=== PATIENT | male | born 1955 | race Caucasian/White ===

== ENCOUNTER 2020-04-13 18:13 | Outpatient (REF) | payer OTHER, BC, SELFPAY ==
[2020-04-13 21:30] LABS: Anion Gap 9.4 mmol/L (3-11); BUN 18 mg/dL (7-18); CO2 26.6 mmol/L (21.0-32.0); CREATININE 0.86 mg/dL (0.70-1.30); Calcium 8.8 mg/dL (8.5-10.1); Calculated LDL 67 mg/dL (<100); Chloride 102 mmol/L (98-107); Cholesterol 122 mg/dL (<200); Glucose 86 mg/dL (74-106); HDL Cholesterol 42 mg/dL (40-60); Potassium 4.1 mmol/L (3.5-5.1); Sodium 138 mmol/L (136-145); Triglyceride 67 mg/dL (<150)
[2020-04-15 10:51] LABS: Hepatitis C Ab w Rflx HCV PCR Negative (Negative)
== END 2020-04-13 18:33 ==
LOC: NCHCN 18:13
PROVIDERS: PCP Internal Medicine; Visit Provider Internal Medicine
DX: I10 Essential (primary) hypertension (principal); E78.5 Hyperlipidemia, unspecified; M17.9 Osteoarthritis of knee, unspecified; E66.9 Obesity, unspecified; Z11.59 Encounter for screening for other viral diseases
CPT/HCPCS: 80048; 80061; 86803

== ENCOUNTER 2021-06-18 19:06 | Outpatient (REF) | payer BC, SELFPAY ==
[2021-06-18 14:42] LABS: Abs Immature Grans 0.07 10^3/uL (0.0-0.06); Absolute Basophil Count 0.03 10^3/uL (0.0-0.2); Absolute Eosinophil Count 0.14 10^3/uL (0.0-0.7); Absolute Lymphocyte Count 2.66 10^3/uL (1.2-3.4); Basophils % 0.3; Eosinophils % 1.2; HCT 46.9 % (40.0-50.0); HGB 15.6 g/dL (13.5-17.5); Immature Grans % 0.6; Lymphocytes % 23.3; MCH 29.5 pg (27.0-33.0); MCHC 33.3 % (32.0-36.0); MCV 88.8 fL (80-95); MPV 10.8 fL (8.0-11.0); Monocytes % 12.3; Neutrophils % 62.3; Nucleated RBC 0 %; Platelet Count 142 10^3/uL (130-400); RBC 5.28 10^6/uL (4.36-5.78); RDW 12.2 % (11.8-14.1); RDW-SD 40.3 fL; WBC 11.42 10^3/uL (4.4-10.8)
[2021-06-18 14:43] LABS: Absolute Neutrophil Count 7.11 10^3/uL (1.2-6.7)
[2021-06-18 15:19] LABS: ALT 32 U/L (16-63); AST 19 U/L (15-37); Alkaline Phosphatase 47 U/L (46-116); Anion Gap 9.7 mmol/L (3-11); BUN 18 mg/dL (7-18); Bilirubin, Total 0.8 mg/dL (0.2-1.0); CO2 25.3 mmol/L (21.0-32.0); CREATININE 0.7 mg/dL (0.70-1.30); Calcium 9.2 mg/dL (8.5-10.1); Chloride 104 mmol/L (98-107); Glucose 114 mg/dL (74-106); Potassium 4.5 mmol/L (3.5-5.1); Sodium 139 mmol/L (136-145); Total Protein 7.6 g/dL (6.4-8.2)
== END 2021-06-18 19:07 | disposition home or self-care (01) ==
LOC: LBN 19:06
PROVIDERS: PCP Internal Medicine; Visit Provider Physician Assistant Medical
DX: M79.89 Other specified soft tissue disorders (principal)
CPT/HCPCS: 80053; 85025

== ENCOUNTER 2021-08-17 00:24 | Outpatient (CLI) | payer MEDICARE, SELFPAY ==
--- NOTE | 2021-08-17 | DI.US_ITS ---
Exam(s) US LOWER EXTREMITY VENOUS RT EXAM: US LOWER EXTREMITY VENOUS RT CLINICAL HISTORY: ACUTE DVT,I82.401 TECHNIQUE: Right lower extremity venous ultrasound performed using grayscale, color-flow, and spectr al Doppler analysis. COMPARISON: US US LOWER EXTREMITY VENOUS RT from 06/18/2021 FINDINGS: The right common demonstrate normal compressibility, augmentation, and color Doppler. There is again seen a hypoechoic thrombus extending from the proximal femoral vein through the popliteal vein and in volving the peroneal veins. It measures approximately 50 cm in length. The posterior tibial veins a re now patent. The saphenofemoral junction is unremarkable. There is no evidence of a Humphreys cyst. The soft tissues are unremarkable. IMPRESSION: 1. Extensive right lower extremity DVT again extending from the femoral vein proximally into the shawanda carri veins. 2. The thrombus seen in the posterior tibialis veins has resolved since the prior examination. DATA REPOSITORY:
== END 2021-08-17 00:44 ==
PROVIDERS: PCP Family Medicine; Visit Provider Family Medicine
DX: I82.491 Acute embolism and thrombosis of other specified deep vein of right lower extremity (principal)
CPT/HCPCS: 93971

== ENCOUNTER 2022-02-09 10:25 | Outpatient (REF) | payer MEDICARE, SELFPAY ==
[2022-02-09 15:13] LABS: HCT 46.7 % (40.0-50.0); HGB 15.6 g/dL (13.5-17.5); MCH 29.2 pg (27.0-33.0); MCHC 33.4 % (32.0-36.0); MCV 87.3 fL (80-95); MPV 11.4 fL (8.0-11.0); Platelet Count 211 10^3/uL (130-400); RBC 5.35 10^6/uL (4.36-5.78); RDW 12.8 % (11.8-14.1); RDW-SD 40.8 fL; WBC 7.57 10^3/uL (4.4-10.8)
[2022-02-09 17:12] LABS: Anion Gap 9.9 mmol/L (3-11); BUN 20 mg/dL (7-18); CO2 25.1 mmol/L (21.0-32.0); CREATININE 0.7 mg/dL (0.70-1.30); Calcium 9.1 mg/dL (8.5-10.1); Chloride 103 mmol/L (98-107); Glucose 114 mg/dL (74-106); Potassium 4.6 mmol/L (3.5-5.1); Sodium 138 mmol/L (136-145)
== END 2022-02-09 10:26 | disposition home or self-care (01) ==
LOC: NCHCN 10:25
PROVIDERS: PCP Family Medicine; Visit Provider Family Medicine
DX: I82.401 Acute embolism and thrombosis of unspecified deep veins of right lower extremity (principal)
CPT/HCPCS: 80048; 85027

== ENCOUNTER 2022-02-09 17:50 | Outpatient (REF) | payer MEDICARE, SELFPAY | END 2022-02-09 17:51 | disposition home or self-care (01) | LOC: NCHCN 17:50 | PROVIDERS: PCP Family Medicine; Visit Provider Family Medicine ==

== ENCOUNTER 2022-02-18 03:38 | Outpatient (CLI) | payer MEDICARE, SELFPAY ==
[2022-02-19 16:24] LABS: Protein S Ag, Free 121 % (65 - 160)
[2022-02-21 09:40] LABS: Antithrombin 3, Funct. 86 % (85-125)
[2022-02-21 22:50] LABS: Phospholipid Ab, IgG <9.4 GPL; Phospholipid Ab, IgM <9.4 MPL
[2022-02-22 09:52] LABS: Factor V Leiden(R506Q) Mut Negative (Negative)
[2022-02-25 15:44] LABS: Protein C Ag, P 73 %
== END 2022-02-18 03:39 | disposition home or self-care (01) ==
PROVIDERS: PCP Family Medicine; Visit Provider Family Medicine
DX: I82.401 Acute embolism and thrombosis of unspecified deep veins of right lower extremity (principal)
CPT/HCPCS: 36415; 81241; 85300; 85305; 86147

== ENCOUNTER 2022-08-27 00:02 | Outpatient (RCR) | payer MEDICARE, SELFPAY ==
[2022-08-13] MEDS: Normal Saline Flush 10 ML SYR IVP (12:57)
[2022-08-13] MEDS: ERTAPENEM 1 GM in Normal Saline 50 ML IVPB (13:11)
[2022-08-14] MEDS: Normal Saline Flush 10 ML SYR IVP (12:59)
[2022-08-14] MEDS: ERTAPENEM 1 GM in Normal Saline 50 ML IVPB (13:04)
[2022-08-15] MEDS: Normal Saline Flush 10 ML SYR IVP (13:03)
[2022-08-15] MEDS: ERTAPENEM 1 GM in Normal Saline 50 ML IVPB (13:03)
[2022-08-16] MEDS: ERTAPENEM 1 GM in Normal Saline 50 ML IVPB (12:52)
[2022-08-16] MEDS: Normal Saline Flush 10 ML SYR IVP (12:54)
[2022-08-17] MEDS: Normal Saline Flush 10 ML SYR IVP (12:52)
[2022-08-17] MEDS: ERTAPENEM 1 GM in Normal Saline 50 ML IVPB (12:52)
[2022-08-18] MEDS: ERTAPENEM 1 GM in Normal Saline 50 ML IVPB (12:40)
[2022-08-18] MEDS: Normal Saline Flush 10 ML SYR IVP (12:41)
[2022-08-19] MEDS: Normal Saline Flush 10 ML SYR IVP (12:39)
[2022-08-19] MEDS: ERTAPENEM 1 GM in Normal Saline 50 ML IVPB (12:39)
[2022-08-19 12:48] LABS: Abs Immature Grans 0.08 10^3/uL (0.0-0.06); Absolute Basophil Count 0.02 10^3/uL (0.0-0.2); Absolute Eosinophil Count 0.12 10^3/uL (0.0-0.7); Absolute Lymphocyte Count 2.21 10^3/uL (1.2-3.4); Absolute Neutrophil Count 6.69 10^3/uL (1.2-6.7); Basophils % 0.2; Eosinophils % 1.2; HCT 34.3 % (40.0-50.0); HGB 10.7 g/dL (13.5-17.5); Immature Grans % 0.8; Lymphocytes % 22.1; MCH 27.4 pg (27.0-33.0); MCHC 31.2 % (32.0-36.0); MCV 88 fL (80-95); MPV 9.4 fL (8.0-11.0); Neutrophils % 66.7; Platelet Count 365 10^3/uL (130-400); RDW 13.9 % (11.8-14.1); RDW-SD 44.4 fL; WBC 10.02 10^3/uL (4.4-10.8)
[2022-08-19 12:59] LABS: C-Reactive Protein 0.98 mg/dL (0.0-0.3); CREATININE 0.9 mg/dL (0.70-1.30); Estimated GFR 94.19 (mL/min/1.73m2)
[2022-08-20] MEDS: ERTAPENEM 1 GM in Normal Saline 50 ML IVPB (12:50)
[2022-08-20] MEDS: Normal Saline Flush 10 ML SYR IVP (12:50)
[2022-08-21] MEDS: ERTAPENEM 1 GM in Normal Saline 50 ML IVPB (12:52)
[2022-08-21] MEDS: Normal Saline Flush 10 ML SYR IVP (12:52)
[2022-08-22] MEDS: Normal Saline Flush 10 ML SYR IVP (12:46)
[2022-08-22] MEDS: ERTAPENEM 1 GM in Normal Saline 50 ML IVPB (12:47)
[2022-08-23] MEDS: ERTAPENEM 1 GM in Normal Saline 50 ML IVPB (12:32)
[2022-08-23] MEDS: Normal Saline Flush 10 ML SYR IVP (12:33)
[2022-08-24] MEDS: Normal Saline Flush 10 ML SYR IVP (12:47)
[2022-08-24] MEDS: ERTAPENEM 1 GM in Normal Saline 50 ML IVPB (12:47)
[2022-08-25] MEDS: Normal Saline Flush 10 ML SYR IVP (12:49)
[2022-08-25] MEDS: ERTAPENEM 1 GM in Normal Saline 50 ML IVPB (12:49)
[2022-08-26] MEDS: ERTAPENEM 1 GM in Normal Saline 50 ML IVPB (12:50)
[2022-08-26] MEDS: Normal Saline Flush 10 ML SYR IVP (12:51)
[2022-08-26 13:09] LABS: Abs Immature Grans 0.04 10^3/uL (0.0-0.06); Absolute Basophil Count 0.03 10^3/uL (0.0-0.2); Absolute Eosinophil Count 0.09 10^3/uL (0.0-0.7); Absolute Lymphocyte Count 2.01 10^3/uL (1.2-3.4); Absolute Monocyte Count 0.98 10^3/uL (0.1-0.8); Absolute Neutrophil Count 6.53 10^3/uL (1.2-6.7); Basophils % 0.3; Eosinophils % 0.9; HCT 36.3 % (40.0-50.0); HGB 11.2 g/dL (13.5-17.5); Immature Grans % 0.4; Lymphocytes % 20.8; MCH 26.6 pg (27.0-33.0); MCHC 30.9 % (32.0-36.0); MCV 86 fL (80-95); MPV 9.8 fL (8.0-11.0); Monocytes % 10.1; Neutrophils % 67.5; Platelet Count 328 10^3/uL (130-400); RBC 4.21 10^6/uL (4.36-5.78); RDW 14.1 % (11.8-14.1); RDW-SD 44.4 fL; WBC 9.68 10^3/uL (4.4-10.8)
[2022-08-26 13:20] LABS: CREATININE 0.8 mg/dL (0.70-1.30); Estimated GFR 97.61 (mL/min/1.73m2)
== END 2022-08-27 23:59 | disposition home or self-care (01) ==
LOC: INF 00:02
PROVIDERS: Internal Medicine; PCP Family Medicine; Visit Provider Internal Medicine
DX: Z96.659 Presence of unspecified artificial knee joint (principal); T84.59XA Infection and inflammatory reaction due to other internal joint prosthesis, initial encounter; Z45.2 Encounter for adjustment and management of vascular access device
CPT/HCPCS: 36592; 96365; 82565; 85025; 86140; J1335

== ENCOUNTER 2022-09-08 13:30 | Outpatient (RCR) | payer MEDICARE, SELFPAY ==
[2022-08-27] MEDS: ERTAPENEM 1 GM in Normal Saline 50 ML IVPB (12:34)
[2022-08-28] MEDS: ERTAPENEM 1 GM in Normal Saline 50 ML IVPB (13:05)
[2022-08-29] MEDS: ERTAPENEM 1 GM in Normal Saline 50 ML IVPB (12:53)
[2022-08-29] MEDS: Normal Saline Flush 10 ML SYR IVP (13:10)
[2022-08-30] MEDS: ERTAPENEM 1 GM in Normal Saline 50 ML IVPB (12:50)
[2022-08-30] MEDS: Normal Saline Flush 10 ML SYR IVP (12:50)
[2022-08-31] MEDS: Normal Saline Flush 10 ML SYR IVP (12:34)
[2022-08-31] MEDS: ERTAPENEM 1 GM in Normal Saline 50 ML IVPB (12:35)
[2022-09-01] MEDS: ERTAPENEM 1 GM in Normal Saline 50 ML IVPB (12:45)
[2022-09-01] MEDS: Normal Saline Flush 10 ML SYR IVP (12:46)
[2022-09-02] MEDS: ERTAPENEM 1 GM in Normal Saline 50 ML IVPB (12:38)
[2022-09-02] MEDS: Normal Saline Flush 10 ML SYR IVP (12:39)
[2022-09-02 13:01] LABS: Abs Immature Grans 0.02 10^3/uL (0.0-0.06); Absolute Basophil Count 0.03 10^3/uL (0.0-0.2); Absolute Eosinophil Count 0.11 10^3/uL (0.0-0.7); Absolute Lymphocyte Count 2.16 10^3/uL (1.2-3.4); Absolute Monocyte Count 0.71 10^3/uL (0.1-0.8); Absolute Neutrophil Count 4.14 10^3/uL (1.2-6.7); Basophils % 0.4; Eosinophils % 1.5; HCT 38.7 % (40.0-50.0); HGB 12.3 g/dL (13.5-17.5); Immature Grans % 0.3; Lymphocytes % 30.1; MCH 26.6 pg (27.0-33.0); MCHC 31.8 % (32.0-36.0); MCV 84 fL (80-95); Monocytes % 9.9; Neutrophils % 57.8; Platelet Count 269 10^3/uL (130-400); RBC 4.62 10^6/uL (4.36-5.78); RDW 13.9 % (11.8-14.1); RDW-SD 42.6 fL; WBC 7.17 10^3/uL (4.4-10.8)
[2022-09-02 13:20] LABS: C-Reactive Protein 0.59 mg/dL (0.0-0.3); CREATININE 0.8 mg/dL (0.70-1.30); Estimated GFR 97.61 (mL/min/1.73m2)
[2022-09-03] MEDS: ERTAPENEM 1 GM in Normal Saline 50 ML IVPB (12:25)
[2022-09-03] MEDS: Normal Saline Flush 10 ML SYR IVP (12:52)
[2022-09-04] MEDS: Normal Saline Flush 10 ML SYR IVP (12:22)
[2022-09-04] MEDS: ERTAPENEM 1 GM in Normal Saline 50 ML IVPB (12:24)
[2022-09-05] MEDS: ERTAPENEM 1 GM in Normal Saline 50 ML IVPB (12:34)
[2022-09-05] MEDS: Normal Saline Flush 10 ML SYR IVP (12:35)
[2022-09-06] MEDS: ERTAPENEM 1 GM in Normal Saline 50 ML IVPB (12:28)
[2022-09-06] MEDS: Normal Saline Flush 10 ML SYR IVP (12:30)
[2022-09-07] MEDS: ERTAPENEM 1 GM in Normal Saline 50 ML IVPB (12:46)
[2022-09-08] MEDS: ERTAPENEM 1 GM in Normal Saline 50 ML IVPB (12:35)
[2022-09-08] MEDS: Normal Saline Flush 10 ML SYR IVP (12:36)
[2022-09-08] MEDS: Bacitracin 1 PACKET (13:18)
== END 2022-09-26 23:59 | disposition home or self-care (01) ==
LOC: INF 13:30
PROVIDERS: Internal Medicine; PCP Family Medicine; Visit Provider Internal Medicine
DX: T84.59XA Infection and inflammatory reaction due to other internal joint prosthesis, initial encounter (principal); Z96.659 Presence of unspecified artificial knee joint
CPT/HCPCS: 36592; 96365; 96413; 82565; 85025; 86140; J1335

== ENCOUNTER → 2023-11-16 12:35 | Outpatient (CLI) | payer MEDICARE, SELFPAY ==
--- NOTE | 2023-11-16 | DI.US_ITS ---
Exam(s) US EXTREMITY VENOUS BI EXAM: US EXTREMITY VENOUS BI CLINICAL HISTORY: H/O DVT,BILAT LOWER EXT PAIN,? DVT. TECHNIQUE: Bilateral lower extremity venous ultrasound performed using grayscale, color-flow, and sp ectral Doppler analysis. COMPARISON: No exams were available for comparison FINDINGS: The right common femoral, femoral and popliteal veins demonstrate normal compressibility, augmentatio n, and color Doppler. The posterior tibial and peroneal veins are patent. The saphenofemoral junctio n is unremarkable. There is no evidence of a Humphreys's cyst. The soft tissues are unremarkable. The left common femoral, femoral and popliteal veins demonstrate normal compressibility, augmentation , and color Doppler. The posterior tibial and peroneal veins are patent. The saphenofemoral junction is unremarkable. There is no evidence of a Humphreys's cyst. The soft tissues are unremarkable. IMPRESSION: 1. No evidence of a right lower extremity DVT. 2. No evidence of a left lower extremity DVT. DATA REPOSITORY:
--- OUTSIDE RECORDS SUMMARY | 2023-11-16 12:37 | XMS_ITS | CCD ---
Author Name Unknown Address [address] [place] [address] [id number] Organization Unknown Address [address] [place] [address] [phone] Care Team Providers Care Relay Assembler Name Role Phone ASTER RICHARDS Attending Physician [phone] ASTER RICHARDS Rounding (Secondary) Physician [phone] Vital Signs Unknown or Not Available. Allergies Allergy Code Allergy Type Reaction Status No Known Allergies 0 No known allergies Active Procedures Unknown or Not Available. History of Immunizations Unknown or Not Available. Problems Unknown or Not Available. Results Unknown or Not Available. Active Medications Unknown or Not Available. Medications Administered During Visit Unknown or Not Available. Encounters Encounter Diagnosis Diagnosis Code Start Date Ankylosis, left knee [id number] 10/17/2022 Social History Smoking Status Code Start Date End Date Former smoker [id number] 01/28/2000 Patient Decision Aids Unknown or Not Available. Discharge Instructions You were admitted to [facility] on 10/17/2022 14:35 with a principal diagnosis of Ankylosis, left knee You were discharged from [facility] on 10/17/2022 00:00 Should you have any questions prior to discharge, please contact a member of your healthcare team. If you have left the hospital and have any questions, please contact your primary care physician. Chief Complaint and Reason For Visit Unknown or Not Available. Function Status Unknown or Not Available. Plan of Care Unknown or Not Available. Referral/Transition of Care Unknown or Not Available.
--- OUTSIDE RECORDS SUMMARY | 2023-11-16 12:37 | XMS_ITS | CCD ---
Author Name Unknown Address [address] [place] [address] [phone] Organization Unknown Address [address] [place] [address] [phone] Care Team Providers Care Dressmaker Helper Name Role Phone GIGI ALVAREZ Attending Physician [phone] Vital Signs Unknown or Not Available. Allergies Allergy Code Allergy Type Reaction Status No Known Allergies 0 No known allergies Active Procedures Unknown or Not Available. History of Immunizations Unknown or Not Available. Problems Unknown or Not Available. Results [facility] ALYSA SWANSONONIX* - Danny ect Date/Time: 10/01/2022 10:22 Test Name Code Test Result Test Units Test Ref Rang e Tier- 72248-5 PRE-OP N/A SARS COV2 RNA: 07921-9 NEGATIVE N/A REFERENCE RANGE: NEGAT Active Medications Unknown or Not Available. Medications Administered During Visit Unknown or Not Available. Encounters Encounter Diagnosis Diagnosis Code Start Date Pre-surgery testing [id number] 10/01/2022 Social History Smoking Status Code Start Date End Date Former smoker [id number] 01/28/2000 Patient Decision Aids Unknown or Not Available. Discharge Instructions You were admitted to [facility] on 10/01/2022 21:54 with a principal diagnosis of Encounter for preprocedural laboratory examination You had the following tests done:TOBIAS COVID RHEONIX* You were discharged from [facility] on 10/01/2022 21:54 Should you have any questions prior to discharge, please contact a member of your healthcare team. If you have left the hospital and have any questions, please contact your primary care physician. Chief Complaint and Reason For Visit Chief Complaint Date of Onset PRE OP TESTING Function Status Unknown or Not Available. Plan of Care Unknown or Not Available. Referral/Transition of Care Unknown or Not Available.
--- OUTSIDE RECORDS SUMMARY | 2023-11-16 12:37 | XMS_ITS | CCD ---
Author Name Unknown Address [address] [place] [address] [id number] Organization Unknown Address [address] [place] [address] [phone] Care Team Providers Care Tree Warden Name Role Phone GIGI ALVAREZ Attending Physician [phone] GIGI ALVAREZ Rounding (Secondary) Physician [phone] Vital Signs Unknown or Not Available. Allergies [...] Encounters Encounter Diagnosis Diagnosis Code Start Date Artificial knee joint present [id number] Social History Smoking Status Code Start Date End Date Former smoker [id number] 01/28/2000 Patient Decision Aids Unknown or Not Available. Discharge Instructions You were admitted to [facility] on 11/17/2022 07:26 with a principal diagnosis of Presence of left artificial knee joint You were discharged from [facility] on 11/17/2022 00:00 Should you have any questions prior [...]
--- OUTSIDE RECORDS SUMMARY | 2023-11-16 12:37 | XMS_ITS | CCD ---
Author Name Unknown Address [address] [place] [address] [id number] Organization Unknown Address [address] [place] [address] [phone] Care Team Providers Care Tray Checker Name Role Phone DORA MCDONOUGH Attending Physician [phone] Vital Signs Unknown or Not Available. Allergies Unknown or Not Available. Procedures Unknown or Not Available. History of Immunizations Unknown or Not Available. Problems Unknown or Not Available. Results Unknown or Not Available. Active Medications Unknown or Not Available. Medications Administered During Visit Unknown or Not Available. 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 Discharge Instructions You were admitted to [facility] on 08/03/2022 03:00 with a principal diagnosis of Infection and inflammatory reaction due to internal left knee prosthesis, initial encounter You were discharged from [facility] on 08/09/2022 03:00 Should you have any questions prior to [...]
--- OUTSIDE RECORDS SUMMARY | 2023-11-16 12:38 | XMS_ITS | CCD ---
Author Name Unknown Address [address] [place] [address] [id number] Organization Unknown Address [address] [place] [address] [phone] Care Team Providers Care Supervisor Fur Dressing Name Role Phone GIGI ALVAREZ Attending Physician [phone] Vital Signs Unknown or Not Available. Allergies Unknown or Not Available. Procedures Unknown or Not Available. History of Immunizations Unknown or Not Available. Problems Unknown or Not Available. Results [facility] SARAHID KIKIONIX* - Danny ect Date/Time: 07/08/2022 10:34 Test Name Code Test Result Test Units Test Ref Rang e Tier- 60729-9 PRE-OP N/A SARS COV2 RNA: 28778-1 NEGATIVE N/A REFERENCE RANGE: NEGAT Active Medications Unknown or Not Available. Medications Administered During Visit Unknown or Not Available. Encounters Encounter Diagnosis Diagnosis Code Start Date Pre-surgery testing [id number] 07/08/2022 Social History Smoking Status Code Start Date End Date Former smoker [id number] 01/28/2000 Patient Decision Aids Unknown or Not Available. Discharge Instructions You were admitted to [facility] on 07/08/2022 21:48 with a principal diagnosis of Encounter for preprocedural laboratory examination You had the following tests done:TOBIAS COVID RHEONIX* You were discharged from [facility] on 07/08/2022 21:48 Should you have any questions prior to [...]
--- OUTSIDE RECORDS SUMMARY | 2023-11-16 12:38 | XMS_ITS | CCD ---
Author Name Unknown Address [address] [place] [address] [id number] Organization Unknown Address [address] [place] [address] [phone] Care Team Providers Care Assistant Auditor Name Role Phone GIGI ALVAREZ Attending Physician [phone] GIGI ALVAREZ Rounding (Secondary) Physician [phone] Vital Signs Unknown or Not Available. Allergies Unknown or Not Available. Procedures Unknown or Not Available. History of Immunizations Unknown or Not Available. Problems Unknown or Not Available. Results Unknown or Not Available. Active Medications Medications Administered During Visit Unknown or Not Available. Encounters Encounter Diagnosis Diagnosis Code Start Date Artificial knee joint present [id number] Social History Smoking Status Code Start Date End Date Former smoker [id number] 01/28/2000 Patient Decision Aids Unknown or Not Available. Discharge Instructions You were admitted to [facility] on 08/12/2022 07:52 with a principal diagnosis of Presence of left artificial knee joint You were discharged from [facility] on 08/12/2022 00:00 Should you have any questions prior [...]
--- OUTSIDE RECORDS SUMMARY | 2023-11-16 12:39 | XMS_ITS | CCD ---
Author Name Unknown Address [address] [place] [address] [id number] Organization Unknown Address [address] [place] [address] [phone] Care Team Providers Care Shactor Helper Name Role Phone GGII ALVAREZ Attending Physician [phone] Vital Signs Unknown or Not Available. Allergies Unknown or Not Available. Procedures Unknown or Not Available. History of Immunizations Unknown or Not Available. Problems Unknown or Not Available. Results BASIC METABOLIC PANEL (BMP) - Collect Date/Time: 06/16/2022 09:05 Test Name Code Test Result Test Units Test Ref Rang e GLUCOSE 2345-7 108 mg/dL L=70 H=116 BUN 3094-0 15 mg/dL L=6 H=25 CREATININE 2160-0 0.74 mg/dL L=0.67 H=1.17 SODIUM SERUM 2951-2 134 mmol/L L=136 H=145 POTASSIUM SERUM 2823-3 4.3 mmol/L L=3.4 H=5 .2 CHLORIDE SERUM 2075-0 100 mmol/L L=96 H=110 CARBON DIOXIDE (CO2) 2028-9 28 mmol/L L=22 H=34 ANION GAP 19165-5 6.5 mmol/L CALCIUM SERUM 62725-1 8.9 mg/dL L=8.2 H=10. 2 AGE 66 years eGFR (non-Afr.Amer.) 55328-6 106 mL/min eGFR (Afr-Liberian) 96235-9 >120 mL/min CBC W/ DIFFERENTIAL* - Colle ct Date/Time: 06/16/2022 09:05 Test Name Code Test Result Test Units Test Ref Rang e WBC 6690-2 7.69 th/cmm L=5.00 H=10.00 NEUT % 59.8 % L=40.0 H=80.0 LYMPH % 22.5 % L=10.0 H=50.0 MONO % 66589-7 12.9 % L=2.0 H=12.0 EOS % 3.8 % L=0.0 H=8.0 BASO % 0.5 % L=0.0 H=3.0 IG % 2514-8 0.5 % L=0.0 H=1.1 NRBC % 62024-8 0.0 % L=0.0 H=0.0 NEUT abs count 751-8 4.6 th/cmm L=1.6 H=8. 4 LYMPH abs count 731-0 1.7 th/cmm L=1.5 H=4 .0 MONO abs count 742-7 1.0 th/cmm L=0.2 H=1. 0 EOS abs count 711-2 0.3 th/cmm L=0.0 H=0.5 BASO abs count 704-7 0.0 th/cmm L=0.0 H=0. 2 IG abs count 59654-6 0.0 th/cmm L=0.0 H=0.1 NRBC abs count 57705-8 0.0 mil/cmm L=0.0 H=0. 0 RBC 789-8 5.22 mil/cmm L=4.30 H=6.20 HEMOGLOBIN 718-7 15.1 gm/dL L=13.0 H=17.0 HEMATOCRIT 4544-3 46 % L=45 H=52 MCV 787-2 88 fL L=82 H=92 MCH 785-6 28.9 pg L=27.0 H=31.0 MCHC 786-4 33.0 % L=32.0 H=36.0 RDW-SD 788-0 40.9 fL L=39.0 H=49.0 PLATELET COUNT 777-3 214 th/cmm L=150 H=45 0 PT PROTHROMBIN TIME* - Colle ct Date/Time: 06/16/2022 09:05 Test Name Code Test Result Test Units Test Ref Rang e PROTIME 5902-2 9.9 seconds L=9.3 H=11.4 INR 41259-4 0.99 L=2.00 H=3.00 MRSA/MSSA NASAL COMPLETE BY PCR* - Collect Date/Time: 06/16/2022 09:05 Test Name Code Test Result Test Units Test Ref Rang e MRSA 90474-0 NEGATIVE N/A Normal: Negati ve MSSA NEGATIVE N/A Normal: Negati ve TYPE AND SCREEN* - Collect D ate/Time: 06/16/2022 09:05 Test Name Code Test Result Test Units Test Ref Rang e Blood Group 883-9 A N/A Rh (D) 67692-0 POSITIVE N/A Antibody Screen 1005-8 NEGATIVE N/A NICOTINE AND METABOLITE(COTI NINE) URINE - Collect Date/Time: 06/16/2022 09:05 Test Name Code Test Result Test Units Test Ref Rang e Cotinine 08426-9 <5.0 ng/mL <5.0 Nornicotine 62218-0 <2.0 ng/mL <2.0 Anabasine 39865-4 <2.0 ng/mL <2.0 Nicotine 3854-7 <5.0 N/A <5.0 Active Medications Unknown or Not Available. Medications Administered During Visit Unknown or Not Available. Encounters Encounter Diagnosis Diagnosis Code Start Date Encounter for preprocedural laboratory examinati on [id number] 06/16/2022 Social History Smoking Status Code Start Date End Date Former smoker [id number] 01/28/2000 Patient Decision Aids Unknown or Not Available. Discharge Instructions You were admitted to on 06/16/2022 08:39 with a principal diagnosis of Encounter for preprocedural laboratory examination You had the following tests done:BASIC METABOLIC PANEL (BMP)CBC W/ DIFFERENTIAL*MRSA/MSSA NASAL COMPLETE BY PCR*NICOTINE AND METABOLITE(COTININE) URINEPT PROTHROMBIN TIME*TYPE AND SCREEN* You were discharged from on 06/16/2022 08:39 Should you have any questions prior to discharge, please contact a member of your healthcare team. If you have left the hospital and have any questions, please contact your primary care physician. Chief Complaint and Reason For Visit Chief Complaint Date of Onset LT KNEE PAIN Function Status Unknown or Not Available. Plan of Care Unknown or Not Available. Referral/Transition of Care Unknown or Not Available.
--- OUTSIDE RECORDS SUMMARY | 2023-11-16 12:39 | XMS_ITS | CCD ---
Author Name Unknown Address [address] [place] [address] [phone] Organization Unknown Address [address] [place] [address] [phone] Care Team Providers Care Java Analyst Name Role Phone GIGI ALVAREZ Attending Physician [phone] GIGI ALVAREZ Rounding (Secondary) Physician [phone] Vital Signs Unknown or Not Available. Allergies Unknown or Not Available. Procedures Unknown or Not Available. History of Immunizations Unknown or Not Available. Problems Unknown or Not Available. Results Unknown or Not Available. Active Medications Unknown or Not Available. Medications Administered During Visit Unknown or Not Available. 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 Discharge Instructions You were admitted to [facility] on 05/03/2022 13:48 with a principal diagnosis of Unilateral primary osteoarthritis, left knee You were discharged from [facility] on 05/03/2022 00:00 Should you have any questions prior [...]
--- NOTE | 2023-11-16 13:59 | DI.RAD_ITS ---
Exam(s) XR LUMBAR SPINE COMPLETE EXAM: XR LUMBAR SPINE COMPLETE CLINICAL HISTORY: LOW BACK AND SI JOINT PAIN.m54.50. TECHNIQUE: 2D digital imaging was performed of the lumbar spine. Five images were obtained. AP, la teral, right oblique, left oblique and L5-S1 spot views were obtained. COMPARISON: No exams were available for comparison FINDINGS: BONES: Rudimentary rib is seen at L1. There is a transitional lumbosacral vertebral body. No fractu re or destructive lesion. There are endplate osteophytes throughout the lumbar spine. Degenerative f acet arthropathy is seen in the lumbar spine. DISKS: There is disc space narrowing at L1-L2, L2-L3 and L5-S1. There is a vacuum disc at L5-S1. ALIGNMENT: Lumbar spinal alignment is within normal limits. No spondylolysis or spondylolisthesis. SOFT TISSUE: Atherosclerosis is present. IMPRESSION: Moderate degenerative changes in the lumbar spine. DATA REPOSITORY: RADIATION DOSE DELIVERED:
== END ==
PROVIDERS: PCP Family Medicine; Visit Provider Physician Assistant Medical
DX: M51.37 Other intervertebral disc degeneration, lumbosacral region (principal)
CPT/HCPCS: 72110; 93970

== ENCOUNTER 2023-12-25 18:30 | Outpatient (REF) | payer MEDICARE, SELFPAY ==
[2023-12-25 16:21] LABS: ALT 45 U/L (16-63); AST 28 U/L (15-37); Alkaline Phosphatase 42 U/L (46-116); Anion Gap 9.3 mmol/L (3-11); BUN 17 mg/dL (7-18); Bilirubin, Total 0.6 mg/dL (0.2-1.0); CO2 24.7 mmol/L (21.0-32.0); CREATININE 0.8 mg/dL (0.70-1.30); Calcium 9.5 mg/dL (8.5-10.1); Chloride 104 mmol/L (98-107); Glucose 118 mg/dL (74-106); Potassium 4.5 mmol/L (3.5-5.1); Sodium 138 mmol/L (136-145); Total Protein 7.7 g/dL (6.4-8.2)
[2023-12-25 16:36] LABS: Hemoglobin A1C 6.5 % (<5.7)
== END 2023-12-25 18:31 | disposition home or self-care (01) ==
LOC: NCHCN 18:30
PROVIDERS: PCP Family Medicine; Visit Provider Family Medicine
DX: I10 Essential (primary) hypertension (principal); R73.09 Other abnormal glucose
CPT/HCPCS: 80053; 83036

== ENCOUNTER 2025-05-05 08:10 | Outpatient (REF) | payer MEDICARE, SELFPAY ==
[2025-05-05 15:04] LABS: ALT 42 U/L (16-63); AST 20 U/L (15-37); Albumin 3.8 g/dL (3.4-5.0); Alkaline Phosphatase 51 U/L (46-116); Anion Gap 4.4 mmol/L (3-11); BUN 17 mg/dL (7-18); Bilirubin, Total 0.7 mg/dL (0.2-1.0); CO2 30.6 mmol/L (21.0-32.0); CREATININE 0.9 mg/dL (0.70-1.30); Calcium 9.1 mg/dL (8.5-10.1); Calculated LDL 80 mg/dL (<100); Chloride 104 mmol/L (98-107); Cholesterol 139 mg/dL (<200); Estimated GFR 93.03 (mL/min/1.73m2); Glucose 129 mg/dL (74-106); HDL Cholesterol 42 mg/dL (>or=40); Potassium 5.2 mmol/L (3.5-5.1); Sodium 139 mmol/L (136-145); Total Protein 7.1 g/dL (6.4-8.2); Triglyceride 89 mg/dL (<150)
== END 2025-05-05 08:11 | disposition home or self-care (01) ==
LOC: NCHCN 08:10
PROVIDERS: PCP Family Medicine; Visit Provider Family Medicine
DX: E78.5 Hyperlipidemia, unspecified (principal); I10 Essential (primary) hypertension
CPT/HCPCS: 80053; 80061

== ENCOUNTER 2025-05-21 00:19 | Outpatient (CLI) | payer MEDICARE, SELFPAY ==
--- NOTE | 2025-05-21 | DI.RAD_ITS ---
Exam(s) XR LUMBAR SPINE COMPLETE EXAM: XR LUMBAR SPINE COMPLETE CLINICAL HISTORY: LOW BACK PAIN,M54.50. TECHNIQUE: 2D digital imaging was performed. Five views. COMPARISON: No exams were available for comparison FINDINGS: BONES: Partial sacralization of L5. No no fracture or destructive lesion. Vertebral body heights are maintained. Facet degenerative changes are present, greatest at L4-5. DISKS: There are prominent endplate osteophytes projecting toward the left at L4-5. Small osteophytes are seen at the remaining levels. There is severe narrowing of the L4-5 disc space. ALIGNMENT: Lumbar spinal alignment is within normal limits. SOFT TISSUE: Normal. IMPRESSION: Advanced degenerative changes at L4-5. DATA REPOSITORY: RADIATION DOSE DELIVERED:
== END 2025-05-21 00:39 ==
PROVIDERS: PCP Family Medicine; Visit Provider Family Medicine
DX: M51.360 Other intervertebral disc degeneration, lumbar region with discogenic back pain only (principal)
CPT/HCPCS: 72110

== ENCOUNTER 2025-07-04 11:32 | Outpatient (CLI) | payer MEDICARE, SELFPAY | END 2025-07-04 11:33 | disposition home or self-care (01) | LOC: DS 11-11 11:32 | PROVIDERS: PCP Family Medicine; Visit Provider Dietitian, Registered | DX: E11.9 Type 2 diabetes mellitus without complications (principal) | CPT/HCPCS: 97802 ==

== ENCOUNTER 2025-08-21 17:17 | Outpatient (REF) | payer MEDICARE, SELFPAY ==
[2025-08-21 16:17] LABS: COMMENT (LAB VIEW ONLY) 66.56 mg/dL; Microalb ug/mg Crea 29.7 ug/mg Cr
--- NOTE | 2025-08-22 15:17 | W.NUTRFU ---
Date of service: 07/04/25 Time of Service: 10:00 Nutrition Note NOTE: the following note was copied and pasted - Edward was seen last month and his note was entered into a patient chart with the same name in error. Nutrition Note NOTE: Edward comes in with his for nutrition visit - new dx of diabetes with last A1c at 6.8 in April. Declined meds at this time - started changing lifestyle already and states he has lost about 20lbs over the last 1 month. Has been cutting and stacking firewood for exercise. and watching portions, later in the evening snacking. We reviewed avoiding SSB's and juice as well. Reviewed priorities of meeting protein goal of about 150g per day and suggested a scoop of whey and scoop of collagen for health benefits and concentrated protein to help out with ~40g per day of his goal. Stressed meeting fiber goal of at least 30g per day and sources - Edward may need to work harder in this area as he has some dislikes to troubleshoot. And also stressed no more than 30g added sugar per day and how to read on labels as well as 1tsp sugar=4g We reviewed carb counting and trying to limit choices to 14 per day and choose higher fiber choices when it comes to starch products. They left with educational materials, my contact info to reach out with any questions. I applauded weight loss already and the efforts he is putting in. Will remain available for any outpatient nutrition guidance he may need Time Spent in Nutritional Counseling and Treatment: 25 min Time Spent in Nutritional Counseling and Treatment: 25 min
== END 2025-08-21 17:18 | disposition home or self-care (01) ==
LOC: NCHCN 17:17
PROVIDERS: PCP Family Medicine; Visit Provider Family Medicine
DX: E11.9 Type 2 diabetes mellitus without complications (principal)
CPT/HCPCS: 00123; 82043; 82570